=== PATIENT | female | born 1940 | race Two or more races ===

== ENCOUNTER 2016-12-10 16:29 | Inpatient (IN) | payer OTHER, MEDICAID ==
[~2016-12-10] VITALS: Ht 152.4 cm; Wt 65.8 kg
[~2016-12-10 16:29] MED LIST: ACTOS30 MG ORAL; ACTOS45 MG ORAL; AMLODIPINE BESY10 MG ORAL; ASPIRIN500 MG ORAL; ASPIRIN81 MG ORAL; CIPROFLOXACIN250 MG PO; CLOPIDOGREL75 MG ORAL; DIOVAN160 MG ORAL; DIOVAN80 MG ORAL; FUROSEMIDE20 M1 ORAL; GLIMEPIRIDE4 MG ORAL; GLIPIZIDE10 MG PO; HYDROCHLOROTH12.5 M2 ORAL; K-TAB10 MEQ PO; LASIX20 M1 ORAL; LASIX40 MG ORAL; LOVASTATIN20 MG ORAL; LOVASTATIN20 MG PO; METFORMIN HCL500 M1 ORAL; NORCO 5-325 TA1 EACH ORAL; OMEPRAZOLE20 M2 ORAL; PROPRANOLOL HCL10 MG ORAL; PROTONIX40 MG ORAL; TRAMADOL HCL50 MG ORAL; UNOBMED; VITAMIN D250000 UNI1 ORAL
--- NOTE | 2016-12-10 16:53 | Emergency Room Report ---
History of Present Illness General Chief Complaint: General Complaint Source: Patient, Medical Record Present Illness HPI Patient sent in for blood transfusion. She had blood drawn by her doctor yesterday. She's been treated for cirrhosis. She's not sure if red blood cells were low or her platelets. She was vomiting 2 days ago. She states it was phlegm. She denies any coffee grounds. She also denies any melena. She is moving her bowels without any trouble. She takes lactulose. She does feel weak. She takes medicine for high ammonia. She also has swelling of her legs which is not changed recently. She denies any chest pain or shortness of breath. There's no fever. She denies dysuria or decreased urine. She has had strokes in the past, HTN, DM. Allergies: Coded Allergies: PHENOBARBITAL (Unverified Allergy, Intermediate, 09/07/12) Patient History Past Medical History: see triage record Past Surgical History: other - L knee, back stabilization Social History: Denies: smoking Social History Narrative with family Reviewed Nursing Documentation: PMH: Agreed, PSxH: Agreed Nursing Documentation-PM Past Medical History: No History, Except For Hx Cardiac Problems: Yes - Anemia, L eye blindness Hx Hypertension: Yes Hx Diabetes: Yes Hx Cancer: No Hx Gastrointestinal Problems: No Hx Cerebrovascular Accident: Yes Hx Transient Ischemic Attacks: Yes Hx Dementia: Yes Hx Seizures: No Hx Headaches: Yes Hx Weakness: Yes - GENERALIZED WEAKNESS Review of Systems All Other Systems: negative except mentioned in HPI Physical Exam Vital Signs Date Time Temp Pulse Resp B/P (MAP) Pulse Ox O2 Delivery O2 Flow Rate FiO2 12/10/16 16:38 98.1 66 16 149/57 100 Room Air Sp02 EP Interpretation: reviewed, normal General Appearance: no apparent distress, alert, GCS 15, non-toxic, Chronically Ill Head: normocephalic Eyes: bilateral eye normal inspection, bilateral eye PERRL ENT: moist mucus membranes Neck: supple Respiratory: lungs clear, normal breath sounds Cardiovascular #1: regular rate, rhythm Cardiovascular #2: 2+ radial (R) Gastrointestinal: normal inspection, normal bowel sounds, non tender, no mass, non-distended, other - no fluid wave Rectal: heme negative stool - yellow Musculoskeletal: back normal, other - in wheel chair Neurologic: alert, oriented x3, DTRs symmetric, sensory intact, speech normal, motor weakness - L partial hemiparesis, other - No asterixis, L ptosis Psychiatric: depressed affect Skin: normal inspection, warm/dry Medical Decision Making Diagnostic Impression: Primary Impression: Hepatic encephalopathy Additional Impressions: Acute renal failure Qualified Codes: N17.9 - Acute kidney failure, unspecified Anemia Qualified Codes: D64.9 - Anemia, unspecified Thrombocytopenia UTI (urinary tract infection) Qualified Codes: N30.00 - Acute cystitis without hematuria Hyperkalemia ER Course Patient presents with a history that her blood counts low. She has evidence of total-body sodium excess on exam. She also complains that weakness. Differential includes acute myocardial infarction, GI bleed, no platelets, anemia, electrolyte abnormality, high ammonia amongst others. Her abdominal exam is benign at the moment. Evaluation will be with EKG, chest x-ray, abdominal films and labs. She has total-body sodium excess right now and therefore IV hydration is not indicated. Stool is negative. Labs with high potassium and renal failure (higher creat than prior admission). Initiation of treatment with albuterol, Kayexelate, calcium, insulin and D50W. Ammonia high. No asterixis, but patient c/o weakness. H/H and platelets low, but not indication for transfusions at this time. Patient improved with treatment. Admit tele, Dr. Yin (Dr. Garcia seasonal driver). UTI late finding and antibiotics ordered. Laboratory Tests Test 12/10/16 17:20 12/10/16 19:02 White Blood Count 4.2 K/UL (4.8-10.8) L Red Blood Count 2.69 M/UL (4.20-5.40) L Hemoglobin 9.2 G/DL (12.0-16.0) L Hematocrit 26.8 % (37.0-47.0) L Mean Corpuscular Volume 100 FL (80-99) H Mean Corpuscular Hemoglobin 34.2 PG (27.0-31.0) H Mean Corpuscular Hemoglobin Concent 34.3 G/DL (32.0-36.0) Red Cell Distribution Width 13.4 % (11.6-14.8) Platelet Count 87 K/UL (150-450) L Mean Platelet Volume 6.4 FL (6.5-10.1) L Neutrophils (%) (Auto) 43.5 % (45.0-75.0) L Lymphocytes (%) (Auto) 34.9 % (20.0-45.0) Monocytes (%) (Auto) 12.1 % (1.0-10.0) H Eosinophils (%) (Auto) 7.7 % (0.0-3.0) H Basophils (%) (Auto) 1.8 % (0.0-2.0) Prothrombin Time 10.6 SEC (9.30-11.50) Prothrombin Time INR 1.0 (0.9-1.1) PTT 27 SEC (23-33) Sodium Level 139 mEQ/L (135-145) Potassium Level 5.8 mEQ/L (3.4-4.9) H Chloride Level 108 mEQ/L (98-107) H Carbon Dioxide Level 16 mEQ/L (20-30) L Anion Gap 15 (5-15) Blood Urea Nitrogen 47 mg/dL (7-23) H Creatinine 1.7 mg/dL (0.5-0.9) H Estimate Glomerular Filtration Rate mL/min (>60) Glucose Level 190 mg/dL (74-106) H Lactic Acid Level 1.50 mmol/L (0.66-2.22) Calcium Level 9.3 mg/dL (8.6-10.2) Total Bilirubin 0.5 mg/dL (0.0-1.2) Aspartate Amino Transferase (AST) 35 U/L (5-40) Alanine Aminotransferase (ALT) 16 U/L (3-33) Alkaline Phosphatase 151 U/L (35-104) H Ammonia 169 umol/L (11-51) H Troponin I < 0.30 ng/mL (<=0.30) Total Protein 6.9 g/dL (6.6-8.7) Albumin 3.4 g/dL (3.5-5.2) L Globulin 3.5 g/dL Albumin/Globulin Ratio 0.9 (1.0-2.7) L Lipase 14 U/L (< 60) Urine Color Yellow Urine Appearance Slightly cloudy Urine pH 5 (4.5-8.0) Urine Specific [place] 1.010 (1.005-1.035) Urine Protein 2+ (NEGATIVE) H Urine Glucose (UA) Negative (NEGATIVE) Urine Ketones Negative (NEGATIVE) Urine Occult Blood 3+ (NEGATIVE) H Urine Nitrite Negative (NEGATIVE) Urine Bilirubin Negative (NEGATIVE) Urine Urobilinogen Normal MG/DL (0.0-1.0) Urine Leukocyte Esterase 2+ (NEGATIVE) H Urine RBC 2-4 /HPF (0 - 2) H Urine WBC 10-15 /HPF (0 - 2) H Urine Squamous Epithelial Cells Few /LPF (NONE/OCC) Urine Bacteria Many /HPF (NONE) H EKG Diagnostic Results Rate: normal Rhythm: NSR ST Segments: no acute changes - 1st degree AVB Rhythm Strip Diag. Results EP Interpretation: yes Rhythm: NSR, no PVC's, no ectopy Chest X-Ray Diagnostic Results Chest X-Ray Diagnostic Results : Chest X-Ray Ordered: Yes # of Views/Limited/Complete: 1 View Indication: Other EP Interpretation: Yes Interpretation: no consolidation, no effusion, no pneumothorax, no acute cardiopulmonary disease, other - spinal [place] Impression: No acute disease Interpreting ER Provider: signed Eliezer Carrasco MD Other X-Ray Diagnostic Results Other X-Ray Diagnostic Results : X-Ray ordered: abd # of Views/Limited Vs Complete: 1 View Indication: Other EP Interpretation: Yes Interpretation: nonspecific bowel gas, no sbo, other - no masses Impression: No acute disease Interpreting ER Provider: signed Eliezer Carrasco MD Last Vital Signs Date Time Temp Pulse Resp B/P (MAP) Pulse Ox O2 Delivery O2 Flow Rate FiO2 12/10/16 23:56 96.8 72 18 94/31 97 Room Air Status: improved Disposition: ADMITTED INPATIENT Condition: Serious Eliezer Carrasco M.D. Dec 10, 2016 16:53
[2016-12-10 16:55] VITALS: BP 129/81
[2016-12-10 17:43] LABS: MEAN CORPUSCULAR HEMOGLOBIN 34.2 PG (27.0-31.0); MEAN CORPUSCULAR HGB CONC 34.3 G/DL (32.0-36.0); MEAN CORPUSCULAR VOLUME 100 FL (80-99); MEAN PLATELET VOLUME 6.4 FL (6.5-10.1); PLATELET COUNT 87 K/UL (150-450); RED BLOOD COUNT 2.69 M/UL (4.20-5.40); RED CELL DISTRIBUTION WIDTH 13.4 % (11.6-14.8); WHITE BLOOD COUNT 4.2 K/UL (4.8-10.8)
[2016-12-10 17:44] LABS: BASOPHILS % (AUTO) 1.8 % (0.0-2.0); EOSINOPHILS % (AUTO) 7.7 % (0.0-3.0); LYMPHOCYTES % (AUTO) 34.9 % (20.0-45.0); MONOCYTES % (AUTO) 12.1 % (1.0-10.0); NEUTROPHILS % (AUTO) 43.5 % (45.0-75.0)
[2016-12-10] MEDS ORDERED: XIFAXAN550 MG ORAL (17:58)
[2016-12-10] MEDS ORDERED: MAPAP500 M2 PO (17:58)
[2016-12-10] MEDS ORDERED: LEVOCETIRIZINE D5 MG ORAL (17:58)
[2016-12-10] MEDS ORDERED: AMLODIPINE BESY10 MG ORAL (18:00)
[2016-12-10] MEDS ORDERED: FOLIC ACID1 MG ORAL (18:00)
[2016-12-10] MEDS ORDERED: KLOR-CON20 MEQ ORAL (18:00)
[2016-12-10] MEDS ORDERED: BENAZEPRIL HCL20 MG ORAL (18:00)
[2016-12-10] MEDS ORDERED: ACTOS30 MG ORAL (18:00)
[2016-12-10 18:01] LABS: PROTHROMBIN TIME 10.6 SEC (9.30-11.50)
[2016-12-10 18:17] LABS: TROPONIN I < 0.30 ng/mL (<=0.30)
[2016-12-10 18:31] LABS: AMMONIA 169 umol/L (11-51)
[2016-12-10 18:50] LABS: ALANINE AMINOTRANSFERASE 16 U/L (3-33); ALBUMIN/GLOBULIN RATIO 0.9 (1.0-2.7); ANION GAP 15 (5-15); ASPARTATE AMINO TRANSFERASE 35 U/L (5-40); CALCIUM 9.3 mg/dL (8.6-10.2); CARBON DIOXIDE 16 mEQ/L (20-30); CHLORIDE 108 mEQ/L (98-107); CREATININE 1.7 mg/dL (0.5-0.9); HEMOLYSIS 1; LIPASE 14 U/L (< 60); POTASSIUM 5.8 mEQ/L (3.4-4.9); SODIUM 139 mEQ/L (135-145); TOTAL PROTEIN 6.9 g/dL (6.6-8.7)
[2016-12-10 19:05] VITALS: BP 103/50
[2016-12-10 19:25] LABS: APPEARANCE,URINE SLIGHTLY CLOUDY; KETONES,URINE NEGATIVE (NEGATIVE); LEUKOCYTE ESTERASE ,URINE 2+ (NEGATIVE); NITRITE,URINE NEGATIVE (NEGATIVE); PH,URINE 5 (4.5-8.0); PROTEIN,URINE 2+ (NEGATIVE); UROBILINOGEN,URINE NORMAL MG/DL (0.0-1.0)
[2016-12-10] MEDS ORDERED: Albuterol ud Inhalation HHN ONE (19:30)
[2016-12-10] MEDS ORDERED: Sodium Polystyrene Sulfonate 15gm Powder ORAL ONE (19:30)
[2016-12-10] MEDS ORDERED: Calcium Gluconate 1gm/10ml vial IVP ONE (19:30)
[2016-12-10 19:33] LABS: BACTERIA,URINE MANY /HPF; SQUAMOUS EPITHELIAL CELL,UR FEW /LPF (NONE/OCC)
[2016-12-10] MEDS ORDERED: TYLENOL EXTRA500 MG ORAL ×2 (19:54→19:56)
[2016-12-10] MEDS ORDERED: KLOR-CON 88 MEQ ORAL (19:58)
[2016-12-10 20:00] VITALS: BP 126/110
[2016-12-10] MEDS ORDERED: LACTULOSE10 GM/153 PO (20:00)
[2016-12-10 21:23] VITALS: BP 145/37
[2016-12-10] MEDS ORDERED: Miralax 17gm pkt ORAL PRN (22:30)
[2016-12-10] MEDS: Lactulose 20gm/30ml UDC ORAL SCH (23:55)
[2016-12-10 23:56] VITALS: BP 94/31
[2016-12-11] MEDS ORDERED: cefTRIAXone 1 GM in D5W 55 ML IVPB ONE (00:45)
[2016-12-11 04:00] VITALS: BP 123/61
[2016-12-11] MEDS: NovoLOG Insulin Flexpen SUBQ SCH ×4 (06:30→20:54)
[2016-12-11 08:26] LABS: MEAN CORPUSCULAR HEMOGLOBIN 33.1 PG (27.0-31.0); MEAN CORPUSCULAR VOLUME 103 FL (80-99); MEAN PLATELET VOLUME 6.7 FL (6.5-10.1); PLATELET COUNT 96 K/UL (150-450); RED BLOOD COUNT 2.76 M/UL (4.20-5.40); RED CELL DISTRIBUTION WIDTH 13.5 % (11.6-14.8)
[2016-12-11 08:44] LABS: ALANINE AMINOTRANSFERASE 18 U/L (3-33); ANION GAP 14 (5-15); ASPARTATE AMINO TRANSFERASE 33 U/L (5-40); BILIRUBIN,DIRECT 0.1 mg/dL (0.1-0.3); CALCIUM 9.4 mg/dL (8.6-10.2); CARBON DIOXIDE 18 mEQ/L (20-30); CHLORIDE 111 mEQ/L (98-107); CREATININE 1.6 mg/dL (0.5-0.9); HEMOLYSIS 7; MAGNESIUM 2.4 mg/dL (1.7-2.5); PHOSPHORUS 4.9 mg/dL (2.5-4.8); POTASSIUM 4.9 mEQ/L (3.4-4.9); SODIUM 143 mEQ/L (135-145); TOTAL PROTEIN 6.6 g/dL (6.6-8.7)
[2016-12-11 08:45] VITALS: BP 150/61
[2016-12-11 08:48] LABS: FERRITIN 331 ng/mL (13-150)
[2016-12-11 08:49] LABS: HEMOLYSIS 12; IRON 61 ug/dL (37-145); TOTAL IRON BINDING CAPACITY 235 ug/dL (250-400)
[2016-12-11] MEDS ORDERED: Docusate 100mg cap ORAL SCH (09:00)
[2016-12-11 09:45] LABS: BAND NEUTROPHILS % (MANUAL) 3 % (0-8); BASOPHILS % (MANUAL) 0 % (0-2); EOSINOPHILS % (MANUAL) 1 % (0-3); LYMPHOCYTES % (MANUAL) 27 % (20-45); MYELOCYTES % 1 % (0-0); NEUTROPHILS % (MANUAL) 65 % (45-75); PLATELET ESTIMATE DECREASED; PLATELET MORPHOLOGY NORMAL; TOTAL CELLS COUNTED 100
[2016-12-11] MEDS: Lactulose 20gm/30ml UDC ORAL SCH ×3 (09:53→19:39)
--- NOTE | 2016-12-11 11:16 | Diagnostic Imaging Report ---
Indication: Dyspnea Comparison: 10/22/15 A single view chest radiograph was obtained. Findings: No definite infiltrate or pulmonary vascular congestion identified. The heart is enlarged. The bones are osteopenic. Impression: No acute disease
--- NOTE | 2016-12-11 11:17 | Diagnostic Imaging Report ---
Indication: Abdominal pain Comparison: None Single view of the abdomen obtained Findings: Bowel gas pattern is nonspecific. The bones are osteopenic. Lower lumbar laminectomy and fixation screws for fusion noted. Impression: No acute findings
[2016-12-11 11:54] VITALS: BP 145/59
--- NOTE | 2016-12-11 12:45 | Wound Care Consultation ---
Wound Assessment Wound Assessment : Wound Number: 1 Wound Present on Admission: Yes New Wound: No Status Change of Wound: No Wound Location Body Site Modif: mid Wound Location Body Site: sacral Wound Type: pressure ulcer Tim Test: Does not Tim Pressure Ulcer Stage: II Wound Thickness: Partial Thickness Wound Length: 1.0 Wound Width: 0.5 Wound Depth: less than 0.1 Percent of Wound [place]/Red: 100 Wound Drainage Description: Serosanguineous Wound Drainage Amount: Scant Wound Drainage Odor: None/Absent Tissue Surrounding Wound: Erythemic Wound General Appearance: Reddened Wound Comment #1 Sacral stage II pressure ulcer Recommendation -Sacral stage II pressure ulcer Cleanse with saline, pat dry, apply Triad cream, cover with Biatain silicone daily and PRN soiled/dislodged -Keep clean and dry -Turn and reposition -Optimize nutrition -Low air loss SPR mattress -Offload both heels -Heel protector on both heels while in bed -Assess and f/u accordingly for any changes MORGAN ROGERS RN Dec 11, 2016 12:45
--- NOTE | 2016-12-11 13:17 | History and Physical ---
History of Present Illness General Date patient seen: Dec 11, 2016 Time patient seen: 13:16 Reason for Hospitalization: Hyperkalemia, anemia, encephalopathy Present Illness HPI 76y/o female with pmh of hep C cirrhosis c/b hepatic encephalopathy, HTN, DM2, CVA and now non-ambulatory (per pt), CKD, aanemia of chronic disease who pressents with weakness and abnormal labs results. Per pt her PCP called her and told her to go to the ER for transfusion given low hgb--she does not know the number. She also c/o generalized weakness, some confusion. She is a poor historian. She denies f/c, n/v, d/c, chest pain, SOB, abd pain, dysuria. Denies melena, BRBPR. Pt states she has been non-ambulatory after multiple strokes. She gets around in a wheelchair. In ED, hgb 9, K 5.8. Pt given treatment for hyperkalemia including Kayexalate. Ammonia level elevated to 160s. Allergies: Coded Allergies: PHENOBARBITAL (Unverified Allergy, Intermediate, 09/07/12) Medication History Scheduled Amlodipine Besylate* (Amlodipine Besylate*), 10 MG ORAL DAILY, (Reported) Benazepril Hcl* (Benazepril Hcl*), 20 MG ORAL DAILY, (Reported) Folic Acid* (Folic Acid*), 1 MG ORAL DAILY, (Reported) Furosemide* (Lasix*), 20 MG ORAL TWICE A DAY, (Reported) Levocetirizine Dihydrochloride (Levocetirizine Dihydrochloride), 5 MG ORAL DAILY , (Reported) Lovastatin (Lovastatin), 20 MG ORAL BEDTIME, (Reported) Pioglitazone Hcl* (Actos*), 30 MG ORAL DAILY, (Reported) Potassium Chloride (Klor-Con 8), 8 MEQ ORAL DAILY, (Reported) Rifaximin* (Xifaxan*), 550 MG ORAL TWICE A DAY, (Reported) Scheduled PRN Acetaminophen* (Tylenol Extra Strength*), 500 MG ORAL Q8H PRN for For Pain, ( Reported) Miscellaneous Medications Lactulose (Lactulose), 10 GM PO, (Reported) Patient History History Provided By: Patient, Medical Record Healthcare decision maker Resuscitation status Full Code Advanced Directive on File No Past Medical/Surgical History Past Medical/Surgical History: (1) H/O: CVA (cerebrovascular accident) (2) HTN (hypertension) (3) Decompensated HCV cirrhosis (4) Hepatic encephalopathy (5) CKD (chronic kidney disease) (6) DM (diabetes mellitus) Family History Family History: Patient reports no known family medical history. Social History Social History: (1) Lives with family Review of Systems Eye: Reports: no symptoms ENT: Reports: no symptoms Respiratory: Reports: no symptoms Cardiovascular: Reports: no symptoms Gastrointestinal: Reports: no symptoms Genitourinary: Reports: no symptoms Musculoskeletal: Reports: no symptoms Skin: Reports: no symptoms Psychiatric: Reports: no symptoms Neurological: Reports: no symptoms Endocrine: Reports: no symptoms Hematologic/Lymphatic: Reports: no symptoms Physical Exam Physical Exam Narrative General: alert, cooperative, no distress, appears stated age Head: normocephalic, without obvious abnormality, atraumatic Eyes: conjunctivae/corneas clear. PERRL, EOM's intact Throat: lips, mucosa, and tongue normal. MMM Neck: supple, symmetrical, trachea midline, and no JVD Lungs: clear to auscultation bilaterally Heart: regular rate and rhythm, S1, S2 normal, no murmur, click, rub or gallop Abdomen: soft, non-tender, +mild distention, no sig fluid wave, bowel sounds normal; no masses or organomegaly Extremities: extremities normal, atraumatic, no cyanosis, trace BLE edema Pulses: 2+ and symmetric Skin: skin color, texture, turgor normal; no rashes or lesions Neurologic: grossly normal, no focal deficits Last 24 Hour Vital Signs Date Time Temp Pulse Resp B/P (MAP) Pulse Ox O2 Delivery O2 Flow Rate FiO2 12/11/16 11:54 97.0 89 20 145/59 97 Room Air 12/11/16 09:53 80 150/61 12/11/16 08:45 97.0 80 18 150/61 100 Room Air 12/11/16 08:00 85 12/11/16 04:00 73 12/11/16 04:00 97.6 68 17 123/61 99 Room Air 12/11/16 00:01 75 12/10/16 23:56 96.8 72 18 94/31 97 Room Air 12/10/16 22:45 97.9 86 24 145/37 99 Room Air 86 12/10/16 21:23 97.9 86 24 145/37 99 Room Air 86 12/10/16 20:00 97.9 77 20 126/110 100 Room Air 12/10/16 19:05 97.9 69 20 103/50 99 Room Air 12/10/16 16:55 98.1 71 14 129/81 100 Room Air 12/10/16 16:38 98.1 66 16 149/57 100 Room Air Intake and Output 12/11/16 12/12/16 19:00 07:00 Intake Total 120 ml Balance 120 ml Intake Oral 120 ml # Voids 1 # Bowel Movements 1 Laboratory Tests Test 12/10/16 17:20 12/10/16 19:02 12/11/16 07:20 White Blood Count 4.2 K/UL (4.8-10.8) L 6.0 K/UL (4.8-10.8) Red Blood Count 2.69 M/UL (4.20-5.40) L 2.76 M/UL (4.20-5.40) L Hemoglobin 9.2 G/DL (12.0-16.0) L 9.1 G/DL (12.0-16.0) L Hematocrit 26.8 % (37.0-47.0) L 28.6 % (37.0-47.0) L Mean Corpuscular Volume 100 FL (80-99) H 103 FL (80-99) H Mean Corpuscular Hemoglobin 34.2 PG (27.0-31.0) H 33.1 PG (27.0-31.0) H Mean Corpuscular Hemoglobin Concent 34.3 G/DL (32.0-36.0) 32.0 G/DL (32.0-36.0) Red Cell Distribution Width 13.4 % (11.6-14.8) 13.5 % (11.6-14.8) Platelet Count 87 K/UL (150-450) L 96 K/UL (150-450) L Mean Platelet Volume 6.4 FL (6.5-10.1) L 6.7 FL (6.5-10.1) Neutrophils (%) (Auto) 43.5 % (45.0-75.0) L % (45.0-75.0) Lymphocytes (%) (Auto) 34.9 % (20.0-45.0) % (20.0-45.0) Monocytes (%) (Auto) 12.1 % (1.0-10.0) H % (1.0-10.0) Eosinophils (%) (Auto) 7.7 % (0.0-3.0) H % (0.0-3.0) Basophils (%) (Auto) 1.8 % (0.0-2.0) % (0.0-2.0) Prothrombin Time 10.6 SEC (9.30-11.50) Prothromb Time International Ratio 1.0 (0.9-1.1) Activated Partial Thromboplast Time 27 SEC (23-33) Sodium Level 139 mEQ/L (135-145) 143 mEQ/L (135-145) Potassium Level 5.8 mEQ/L (3.4-4.9) H 4.9 mEQ/L (3.4-4.9) Chloride Level 108 mEQ/L (98-107) H 111 mEQ/L (98-107) H Carbon Dioxide Level 16 mEQ/L (20-30) L 18 mEQ/L (20-30) L Anion Gap 15 (5-15) 14 (5-15) Blood Urea Nitrogen 47 mg/dL (7-23) H 48 mg/dL (7-23) H Creatinine 1.7 mg/dL (0.5-0.9) H 1.6 mg/dL (0.5-0.9) H Estimat Glomerular Filtration Rate mL/min (>60) mL/min (>60) Glucose Level 190 mg/dL (74-106) H 133 mg/dL (74-106) H Lactic Acid Level 1.50 mmol/L (0.66-2.22) Calcium Level 9.3 mg/dL (8.6-10.2) 9.4 mg/dL (8.6-10.2) Total Bilirubin 0.5 mg/dL (0.0-1.2) 0.6 mg/dL (0.0-1.2) Aspartate Amino Transf (AST/SGOT) 35 U/L (5-40) 33 U/L (5-40) Alanine Aminotransferase (ALT/SGPT) 16 U/L (3-33) 18 U/L (3-33) Alkaline Phosphatase 151 U/L (35-104) H 123 U/L (35-104) H Ammonia 169 umol/L (11-51) H Troponin I < 0.30 ng/mL (<=0.30) Total Protein 6.9 g/dL (6.6-8.7) 6.6 g/dL (6.6-8.7) Albumin 3.4 g/dL (3.5-5.2) L 3.2 g/dL (3.5-5.2) L Globulin 3.5 g/dL Albumin/Globulin Ratio 0.9 (1.0-2.7) L Lipase 14 U/L (< 60) Urine Color Yellow Urine Appearance Slightly cloudy Urine pH 5 (4.5-8.0) Urine Specific [place] 1.010 (1.005-1.035) Urine Protein 2+ (NEGATIVE) H Urine Glucose (UA) Negative (NEGATIVE) Urine Ketones Negative (NEGATIVE) Urine Occult Blood 3+ (NEGATIVE) H Urine Nitrite Negative (NEGATIVE) Urine Bilirubin Negative (NEGATIVE) Urine Urobilinogen Normal MG/DL (0.0-1.0) Urine Leukocyte Esterase 2+ (NEGATIVE) H Urine RBC 2-4 /HPF (0 - 2) H Urine WBC 10-15 /HPF (0 - 2) H Urine Squamous Epithelial Cells Few /LPF (NONE/OCC) Urine Bacteria Many /HPF (NONE) H Differential Total Cells Counted 100 Neutrophils % (Manual) 65 % (45-75) Lymphocytes % (Manual) 27 % (20-45) Monocytes % (Manual) 3 % (1-10) Eosinophils % (Manual) 1 % (0-3) Basophils % (Manual) 0 % (0-2) Myelocytes % 1 % (0-0) H Band Neutrophils 3 % (0-8) Platelet Estimate Decreased L Platelet Morphology Normal Red Blood Cell Morphology Normal Phosphorus Level 4.9 mg/dL (2.5-4.8) H Magnesium Level 2.4 mg/dL (1.7-2.5) Iron Level 61 ug/dL (37-145) Total Iron Binding Capacity 235 ug/dL (250-400) L Percent Iron Saturation 26 % (15-50) Unsaturated Iron Binding 174 ug/dL (112-346) Ferritin 331 ng/mL (13-150) H Direct Bilirubin 0.1 mg/dL (0.1-0.3) Pro-B-Type Natriuretic Peptide 1134 pg/mL (0-125) H Microbiology Date/Time Source Procedure Growth Status 12/10/16 19:02 Urine,Clean Catch Urine Culture - Preliminary Resulted Height (Feet): 5 Height (Inches): 0.00 Weight (Pounds): 145 Medications Current Medications Medications (Trade) Dose Ordered Sig/Archie Route PRN Reason Start Time Stop Time Status Last Admin Dose Admin Amlodipine Besylate (Norvasc) 10 mg DAILY ORAL 12/11/16 09:00 01/10/17 08:59 12/11/16 09:53 Atorvastatin Calcium (Lipitor) 10 mg QHS ORAL 12/11/16 21:00 01/10/17 20:59 Bisacodyl (Dulcolax) 10 mg DAILYPRN PRN RECTAL Constipation 12/10/16 22:30 01/09/17 22:29 Dextrose (Dextrose 50%) STAT PRN IV Hypoglycemia 12/10/16 22:30 01/09/17 22:29 Dextrose (Dextrose 50%) STAT PRN IV Hypoglycemia 12/10/16 22:45 01/09/17 22:44 Docusate Sodium (Colace) 100 mg EVERY 12 HOURS ORAL 12/11/16 09:00 01/10/17 08:59 Folic Acid (Folate) 1 mg DAILY ORAL 12/11/16 09:00 01/10/17 08:59 12/11/16 09:00 Insulin Aspart (NovoLOG) BEFORE MEALS AND HS SUBQ 12/11/16 06:30 01/10/17 06:29 Lactulose (Cephulac) 20 gm THREE TIMES A DAY ORAL 12/10/16 22:45 01/09/17 22:44 12/11/16 09:53 Ondansetron HCl (Zofran) 4 mg Q6H PRN IVP Nausea & Vomiting 12/10/16 22:30 01/09/17 22:29 Pantoprazole (Protonix) 40 mg DAILY ORAL 12/11/16 09:00 01/10/17 08:59 12/11/16 09:53 Polyethylene Glycol (Miralax) 17 gm DAILYPRN PRN ORAL Constipation 12/10/16 22:30 01/09/17 22:29 Rifaximin (Xifaxan) 550 mg TWICE A DAY ORAL 12/10/16 22:45 12/17/16 22:44 12/11/16 09:00 Assessment/Plan Problem List: (1) Hyperkalemia ICD Codes: E87.5 - Hyperkalemia SNOMED: 50051993 (2) RACIEL on CKD (3) Acute on chronic hepatic encephalopathy (4) Decompensated HCV cirrhosis ICD Codes: B19.20 - Unspecified viral hepatitis C without hepatic coma; K74.69 - Other cirrhosis of liver SNOMED: 23276648, 84176831, 462610044, 809866166 (5) Anemia of chronic disease ICD Codes: D63.8 - Anemia in other chronic diseases classified elsewhere SNOMED: 184251048 (6) DM2 (diabetes mellitus, type 2) ICD Codes: E11.9 - Type 2 diabetes mellitus without complications SNOMED: 13241319 (7) HTN (hypertension) ICD Codes: I10 - Essential (primary) hypertension SNOMED: 66142825 (8) H/O: CVA (cerebrovascular accident) ICD Codes: Z86.73 - Personal history of transient ischemic attack (TIA), and cerebral infarction without residual deficits SNOMED: 301850496 Status: stable Assessment/Plan Admit inpt Renal consulted s/p treatment for hyperkalemia Monitor lytes and Cr closely Hold home ACEI and lasix for now given RACIEL GI consulted Plan for EGD tomorrow Cont lactulose (dose increased) + rifaximin Monitor mental status closely Outpt hepatology f/u for hep C treatment if not already done PT/OT eval Pain control, bowel regimen, supportive care DVT Prophylaxis: SCD Code Status: Full Hospital Classification Declaration: Based on this initial evaluation, and depending on the patient's clinical course, I anticipate that this patient will require hospitalization for 2-3 days for acute hepatic encephalopathy, hyperK and close respiratory/hemodynamic monitoring. Disposition: Once the patient is stable to leave the hospital, I anticipate the patient will likely be discharged to the following environment: home with HH vs SNF I spent 70 minutes on this patient's case, and 39 minutes were dedicated to counseling and/or care coordination. Discussed with patient/family, nursing staff, SW/CM, GI, renal regarding clinical status, treatment course, and disposition planning. D/w GI re plan for EGD Time of note may not reflect time of encounter. Jose Dennison M.D. Dec 11, 2016 13:17
--- NOTE | 2016-12-11 14:18 | Consultation ---
Consult Note Consult Note Chief Complaint: General Complaint Patient sent in for blood transfusion. She had blood drawn by her doctor yesterday. She's been treated for cirrhosis. She's not sure if red blood cells were low or her platelets. She was vomiting 2 days ago. She states it was phlegm. She denies any coffee grounds. She also denies any melena. She is moving her bowels without any trouble. She takes lactulose. She does feel weak. She takes medicine for high ammonia. She also has swelling of her legs which is not changed recently. She denies any chest pain or shortness of breath. There's no fever. She denies dysuria or decreased urine. She has had strokes in the past, HTN, DM. Allergies: PHENOBARBITAL (Unverified Allergy, Intermediate, 09/07/12) Past Medical History: Hx Cardiac Problems: Yes - Anemia, L eye blindness Hx Hypertension: Yes Hx Diabetes: Yes Hx Cerebrovascular Accident: Yes Hx Transient Ischemic Attacks: Yes Hx Dementia: Yes Hx Headaches: Yes Hx Weakness: Yes - GENERALIZED WEAKNESS . Assessment/Plan Renal failure / Mainly pre renal, with hyperKalemia Hepatic encephalopathy Anemia, Low Plats DM- HTN- CAD- s/p CVA- GERD- h/o Anemia- h/o UTIs Plan: Monitor renal parameters Meds reviewed- Avoid nephrotoxics anemia palacios Lactulose per orders CARMELLA KWOK Dec 11, 2016 14:18
[2016-12-11 15:54] VITALS: BP 125/57
[2016-12-11] MEDS: Docusate 100mg cap ORAL SCH (19:39)
[2016-12-11 20:00] VITALS: BP 145/61
[2016-12-12] VITALS (12 sets, daily range): BP systolic 130–159; BP diastolic 49–67
--- NOTE | 2016-12-12 01:15 | Consultation ---
DATE OF CONSULTATION: 12/11/2016 CHIEF COMPLAINT: Encephalopathy. HISTORY OF PRESENT ILLNESS: This is a very pleasant 76-year-old female with past medical history of hepatitis C and cirrhosis complicated with encephalopathy. Per patient, she is not getting any treatment for hepatitis C, but she has been followed apparently by liver doctor and been getting ultrasound every six months, admitted to hospital with anemia and altered mental status. On admission, ammonia level was 164. The patient denies any nausea or vomiting. Denies any dysphagia or odynophagia. Denies any melena or hematochezia. PAST MEDICAL HISTORY: 1. Hepatitis C. 2. Cirrhosis. 3. Thrombocytopenia. 4. Encephalopathy. 5. Multiple strokes in the past. 6. Hypertension. 7. Hypercholesterolemia. 8. Diabetes. PAST SURGICAL HISTORY: The patient had left knee surgery and back surgery. ALLERGIES: Phenobarbital. MEDICATIONS: Please see medication reconciliation list. SOCIAL HISTORY: The patient denies any tobacco, alcohol, or drug abuse. REVIEW OF SYSTEMS: A 10-point review of system was performed and pertinent positives in history of present illness. PHYSICAL EXAMINATION: VITAL SIGNS: Temperature 97 degrees, pulse 80, respirations 18, and blood pressure is 160/61. HEENT: Normocephalic and and atraumatic. The patient has left eye blindness. CARDIOVASCULAR: Regular rhythm. Plus S1 and S2. LUNGS: Clear to auscultation bilaterally. ABDOMEN: Positive bowel sounds. Soft and nontender. No rebound. No guarding. No peritoneal sign. EXTREMITIES: No cyanosis. No clubbing. No edema. LABORATORY DATA: White count 6, hemoglobin 9.1, hematocrit 28, and platelets of 96,000. ASSESSMENT: This is a 76-year-old female with altered mental status, elevated ammonia level, cirrhosis, and hepatic encephalopathy. PLAN: Continue lactulose and Xifaxan. Repeat ammonia level for tomorrow. Abdominal ultrasound, hepatitis panel. Plan for endoscopy tomorrow for evaluation of esophageal varices. The patient was informed of the procedure and risks and she agreed to it. Repeat labs for tomorrow. I want to thank, Dr. Yin, for this kind referral. Tesfaye Keyes M.D. DR: WANDA JOB#: [id number] CC: Ho Yin M.D.; Fax#: [phone]
[2016-12-12] MEDS: NovoLOG Insulin Flexpen SUBQ SCH ×4 (06:30→21:00)
[2016-12-12 07:32] LABS: MEAN CORPUSCULAR HEMOGLOBIN 33.3 PG (27.0-31.0); MEAN CORPUSCULAR HGB CONC 32.6 G/DL (32.0-36.0); MEAN CORPUSCULAR VOLUME 102 FL (80-99); MEAN PLATELET VOLUME 7.8 FL (6.5-10.1); PLATELET COUNT 81 K/UL (150-450); RED BLOOD COUNT 2.63 M/UL (4.20-5.40); WHITE BLOOD COUNT 3.5 K/UL (4.8-10.8)
[2016-12-12 07:41] LABS: PROTHROMBIN TIME 10.7 SEC (9.30-11.50)
[2016-12-12 07:53] LABS: AMMONIA 326 umol/L (11-51)
[2016-12-12 07:56] LABS: HEMOLYSIS 4; IRON 101 ug/dL (37-145); TOTAL IRON BINDING CAPACITY 226 ug/dL (250-400)
[2016-12-12 08:06] LABS: FERRITIN 334 ng/mL (13-150)
[2016-12-12 08:07] LABS: CRP QUANT < 0.3 mg/dL (< 0.5); HEMOGLOBIN A1C 5.3 % (< 6.0); MAGNESIUM 2.4 mg/dL (1.7-2.5); PHOSPHORUS 4.4 mg/dL (2.5-4.8); URIC ACID 6.9 mg/dL (3.0-7.5)
[2016-12-12 08:32] LABS: ALANINE AMINOTRANSFERASE 16 U/L (3-33); ANION GAP 14 (5-15); ASPARTATE AMINO TRANSFERASE 30 U/L (5-40); CARBON DIOXIDE 17 mEQ/L (20-30); CHLORIDE 110 mEQ/L (98-107); CREATININE 1.6 mg/dL (0.5-0.9); HEMOLYSIS 3; POTASSIUM 4.3 mEQ/L (3.4-4.9); SODIUM 141 mEQ/L (135-145)
[2016-12-12 08:34] LABS: EOSINOPHILS % (MANUAL) 8 % (0-3); LYMPHOCYTES % (MANUAL) 42 % (20-45); NEUTROPHILS % (MANUAL) 44 % (45-75); TOTAL CELLS COUNTED 100
[2016-12-12 08:35] LABS: BAND NEUTROPHILS % (MANUAL) 0 % (0-8); BASOPHILS % (MANUAL) 0 % (0-2); PLATELET ESTIMATE DECREASED; PLATELET MORPHOLOGY NORMAL
[2016-12-12] MEDS: Lactulose 20gm/30ml UDC ORAL SCH ×3 (08:35→17:47)
[2016-12-12] MEDS: Docusate 100mg cap ORAL SCH ×3 (08:36→17:44)
[2016-12-12] MEDS ORDERED: Lidocaine 1% MPF 10mg/ml 5ml ONE (10:00)
[2016-12-12] MEDS ORDERED: Midazolam 2mg/2ml Inj ONE (10:00)
[2016-12-12] MEDS ORDERED: Alfentanil 2ml Inj ONE (10:00)
[2016-12-12] MEDS ORDERED: LR 1000ml ONE (10:00)
[2016-12-12] MEDS ORDERED: Propofol 200mg/20ml IV ONE (10:00)
[2016-12-12] MEDS ORDERED: LR 1000ml 1,000 ML IVLG SCH (10:04)
--- NOTE | 2016-12-12 10:04 | Anethesia Preoperative Eval ---
Anesthesia Pre-op PMH/ROS General Date of Evaluation: Dec 12, 2016 Time of Evaluation: 09:47 Anesthesiologist: Sandra ASA Score: ASA 4 Mallampati Score Class I : Soft palate, uvula, fauces, pillars visible Class II: Soft palate, uvula, fauces visible Class III: Soft palate, base of uvula visible Class IV: Only hard plate visible Mallampati Classification: Class III Surgeon: Wali Diagnosis: Anemia Surgical Procedure: EGD Anesthesia History: none Family History: no anesthesia problems Allergies: Coded Allergies: PHENOBARBITAL (Unverified Allergy, Intermediate, 09/07/12) Medications: see eMAR Past Medical History Cardiovascular: Reports: HTN, CAD, other - HL Neurologic/Psychiatric: Reports: dementia Endocrine: Reports: DM Hematology/Immune: Reports: anemia, other - Hep C Other: obesity - BMI 30 PSxH Narrative: Back SX, L Knee SX Anesthesia Pre-op Phys. Exam Physician Exam Last Vital Signs Date Time Temp Pulse Resp B/P (MAP) Pulse Ox O2 Delivery O2 Flow Rate FiO2 12/12/16 08:42 78 130/49 12/12/16 08:00 97.5 20 95 Room Air Constitutional: NAD Neurologic: CN 2-12 intact Cardiovascular: RRR Respiratory: CTA Gastrointestinal: S/NT/ND Airway Exam Mallampati Score: Class III MO: limited ROM: limited Teeth: missing Anesthesia Pre-op A/P Labs Hematology Test 12/12/16 06:55 White Blood Count 3.5 K/UL (4.8-10.8) L Red Blood Count 2.63 M/UL (4.20-5.40) L Hemoglobin 8.7 G/DL (12.0-16.0) L Hematocrit 26.9 % (37.0-47.0) L Mean Corpuscular Volume 102 FL (80-99) H Mean Corpuscular Hemoglobin 33.3 PG (27.0-31.0) H Mean Corpuscular Hemoglobin Concent 32.6 G/DL (32.0-36.0) Red Cell Distribution Width 13.0 % (11.6-14.8) Platelet Count 81 K/UL (150-450) L Mean Platelet Volume 7.8 FL (6.5-10.1) Neutrophils (%) (Auto) % (45.0-75.0) Lymphocytes (%) (Auto) % (20.0-45.0) Monocytes (%) (Auto) % (1.0-10.0) Eosinophils (%) (Auto) % (0.0-3.0) Basophils (%) (Auto) % (0.0-2.0) Differential Total Cells Counted 100 Neutrophils % (Manual) 44 % (45-75) L Lymphocytes % (Manual) 42 % (20-45) Monocytes % (Manual) 6 % (1-10) Eosinophils % (Manual) 8 % (0-3) H Basophils % (Manual) 0 % (0-2) Band Neutrophils 0 % (0-8) Platelet Estimate Decreased L Platelet Morphology Normal Red Blood Cell Morphology Normal Coagulation Test 12/12/16 06:55 Prothrombin Time 10.7 SEC (9.30-11.50) Prothromb Time International Ratio 1.0 (0.9-1.1) Chemistry Test 12/12/16 06:55 Sodium Level 141 mEQ/L (135-145) Potassium Level 4.3 mEQ/L (3.4-4.9) Chloride Level 110 mEQ/L (98-107) H Carbon Dioxide Level 17 mEQ/L (20-30) L Anion Gap 14 (5-15) Blood Urea Nitrogen 42 mg/dL (7-23) H Creatinine 1.6 mg/dL (0.5-0.9) H Estimat Glomerular Filtration Rate mL/min (>60) Glucose Level 144 mg/dL (74-106) H Hemoglobin A1c 5.3 % (< 6.0) Uric Acid 6.9 mg/dL (3.0-7.5) Calcium Level 9.0 mg/dL (8.6-10.2) Phosphorus Level 4.4 mg/dL (2.5-4.8) Magnesium Level 2.4 mg/dL (1.7-2.5) Iron Level 101 ug/dL (37-145) Total Iron Binding Capacity 226 ug/dL (250-400) L Percent Iron Saturation 45 % (15-50) Unsaturated Iron Binding 125 ug/dL (112-346) Ferritin 334 ng/mL (13-150) H Total Bilirubin 0.5 mg/dL (0.0-1.2) Gamma Glutamyl Transpeptidase 35 U/L (5-36) Aspartate Amino Transf (AST/SGOT) 30 U/L (5-40) Alanine Aminotransferase (ALT/SGPT) 16 U/L (3-33) Alkaline Phosphatase 126 U/L (35-104) H Ammonia 326 umol/L (11-51) H Total Creatine Kinase 193 U/L (26-140) H C-Reactive Protein, Quantitative < 0.3 mg/dL (< 0.5) Pro-B-Type Natriuretic Peptide 1759 pg/mL (0-125) H Total Protein 6.0 g/dL (6.6-8.7) L Albumin 3.0 g/dL (3.5-5.2) L Globulin 3.0 g/dL Albumin/Globulin Ratio 1.0 (1.0-2.7) Alpha Fetoprotein Pending Vitamin B12 Level 1566 pg/mL (211-946) H Folate Pending Thyroid Stimulating Hormone (TSH) 5.140 uIU/mL (0.300-4.500) Risk Assessment & Plan Assessment: ASA 4 Plan: GA Status Change Before Surgery: No Kel Flores MD Dec 12, 2016 10:04
--- NOTE | 2016-12-12 10:06 | 48 Hour Post Anesthesia Eval ---
Post Anesthesia Evaluation Procedure: EGD Date of Evaluation: Dec 12, 2016 Time of Evaluation: 12:48 Blood Pressure Systolic: 141 0: 63 Pulse Rate: 72 Respiratory Rate: 18 Temperature (Fahrenheit): 98.4 O2 Sat by Pulse Oximetry: 99 Airway: patent Nausea: No Vomiting: No Pain Intensity: 1 Hydration Status: adequate Cardiopulmonary Status: Stable Mental Status/LOC: patient returned to baseline Follow-up Care/Observations: 0 Post-Anesthesia Complications: 0 Follow-up care needed: N/A Kel Flores MD Dec 12, 2016 10:06
--- NOTE | 2016-12-12 10:06 | Immediate Post-Op Evaluation ---
Immediate Post-Op Evalulation Immediate Post-Op Evalulation Procedure: EGD Date of Evaluation: Dec 12, 2016 Time of Evaluation: 10:38 IV Fluids: 200 LR Blood Products: 0 Estimated Blood Loss: 1 Urinary Output: 0 Blood Pressure Systolic: 137 Blood Pressure Diastolic: 62 Pulse Rate: 74 Respiratory Rate: 16 O2 Sat by Pulse Oximetry: 100 Temperature (Fahrenheit): 98.2 Pain Score (1-10): 1 Nausea: No Vomiting: No Complications 0 Patient Status: awake, reacts, patent, none Hydration Status: adequate Kel Flores MD Dec 12, 2016 10:06
--- NOTE | 2016-12-12 10:08 | Pre-Procedure Note/Attestation ---
Pre-Procedure Note/Attestation Complete Prior to Procedure Planned Procedure: not applicable Procedure Narrative: egd Indications for Procedure Pre-Operative Diagnosis: gib Attestation I attest that I discussed the nature of the procedure; its benefits; risks and complications; and alternatives (and the risks and benefits of such alternatives ), prior to the procedure, with the patient (or the patient's legal termite control service representative). I attest that, if there was a reasonable possibility of needing a blood transfusion, the patient (or the patient's legal termite control service representative) was given the [facility] standardized written summary, pursuant to the Wu Reynaldo Blood Safety Act ([place] Health and Safety Code # 1645, as amended). I attest that I re-evaluated the patient just prior to the surgery and that there has been no change in the patient's H&P, except as documented below: YORDAN VUONG Dec 12, 2016 10:08
[2016-12-12] MEDS ORDERED: Ketorolac 60mg Inj IV PRN (10:15)
[2016-12-12] MEDS ORDERED: Ketorolac 30mg Inj IV PRN (10:15)
[2016-12-12] MEDS ORDERED: Midazolam 2mg/2ml Inj IVP PRN (10:15)
[2016-12-12] MEDS ORDERED: DiphenhydrAMINE 50mg/ml Inj IVP PRN (10:15)
[2016-12-12] MEDS ORDERED: Meperidine 25mg/0.5ml Inj (FOR RIGORS ONLY) IV PRN (10:15)
[2016-12-12] MEDS ORDERED: oxyCODONE HCL/Acetaminophen 5/325mg ORAL PRN (10:15)
[2016-12-12] MEDS ORDERED: Metoclopramide 10mg/2ml Inj IVP PRN (10:15)
[2016-12-12] MEDS ORDERED: LORazepam Inj 2mg/ml 1ml IV PRN (10:15)
[2016-12-12] MEDS ORDERED: Norco 7.5mg/325mg tab ORAL PRN (10:15)
[2016-12-12] MEDS ORDERED: Norco 5mg/325mg tab ORAL PRN (10:15)
[2016-12-12] MEDS ORDERED: Atropine Inj 1mg/10ml Syr IV PRN (10:15)
[2016-12-12] MEDS ORDERED: fentaNYL 100 mcg/2 mL IV PRN (10:15)
[2016-12-12] MEDS ORDERED: Hydromorphone 0.5mg/0.5ml inj IVP PRN (10:15)
--- NOTE | 2016-12-12 10:16 | Endoscopy Procedure Note ---
Endoscopy Procedure Note Indication for Procedure: cirrhosis Procedures Performed: EGD Operative Findings/Diagnosis: gastritis Specimen: yes Pt Tolerated Procedure Well: Yes Estimated Blood Loss: none Anesthesiologist: sae Anesthesia: MAC Implant(s) used?: No 50 yrs or older w/o bx or poly: Not Applicable 10yrs. F/U not recommended: Not Applicable YORDAN VUONG Dec 12, 2016 10:16
--- NOTE | 2016-12-12 11:49 | Diagnostic Imaging Report ---
Indication:Abdominal pain. Elevated alkaline phosphatase. Technique: Grayscale and duplex Doppler imaging of the abdomen performed. Comparison: None Findings: There is nodularity of the liver surface. The liver shows a coarsened echotexture. The findings are consistent with cirrhosis/chronic liver disease. The demonstrated part of the pancreas is unremarkable in appearance. The aorta appears normal caliber but only partially seen. Main portal vein patent by Doppler. Central right renal cyst poorly imaged measuring about one CM. CBD is 5 mm in diameter. Spleen is normal in size. Increased color-flow vascularity noted in the splenic hilum. Possibility of varices not excluded. Impression: Chronic liver disease/cirrhosis. Possible varices in the area of the splenic hilum. No ascites Poorly imaged small right renal cyst
--- NOTE | 2016-12-12 12:57 | General Progress Note ---
Assessment/Plan Problem List: (1) Hyperkalemia ICD Codes: E87.5 - Hyperkalemia SNOMED: 34140545 (2) RACIEL on CKD (3) Acute on chronic hepatic encephalopathy (4) Decompensated HCV cirrhosis ICD Codes: B19.20 - Unspecified viral hepatitis C without hepatic coma; K74.69 - Other cirrhosis of liver SNOMED: 74088041, 15186136, 232500129, 629593238 (5) Anemia of chronic disease ICD Codes: D63.8 - Anemia in other chronic diseases classified elsewhere SNOMED: 776996360 (6) DM2 (diabetes mellitus, type 2) ICD Codes: E11.9 - Type 2 diabetes mellitus without complications SNOMED: 77892717 (7) HTN (hypertension) ICD Codes: I10 - Essential (primary) hypertension SNOMED: 25972992 (8) H/O: CVA (cerebrovascular accident) ICD Codes: Z86.73 - Personal history of transient ischemic attack (TIA), and cerebral infarction without residual deficits SNOMED: 826484299 Status: stable Assessment/Plan Renal consulted s/p treatment for hyperkalemia Monitor lytes and Cr closely Hold home ACEI and lasix for now given RACIEL GI consulted s/p EGD 12/12/16 which showed gastritis Cont lactulose (dose increased) + rifaximin Monitor mental status closely Outpt hepatology f/u for hep C treatment if not already done PT/OT eval Pain control, bowel regimen, supportive care DVT Prophylaxis: SCD Code Status: Full Hospital Classification Declaration: Based on this initial evaluation, and depending on the patient's clinical course, I anticipate that this patient will require hospitalization for 2-3 days for acute hepatic encephalopathy, hyperK and close respiratory/hemodynamic monitoring. Disposition: Once the patient is stable to leave the hospital, I anticipate the patient will likely be discharged to the following environment: home with HH vs SNF I spent 40 minutes on this patient's case, and 23 minutes were dedicated to counseling and/or care coordination. Discussed with patient/family, nursing staff, SW/CM, GI, renal regarding clinical status, treatment course, and disposition planning. D/w GI re EGD results Time of note may not reflect time of encounter. Subjective Date patient seen: Dec 12, 2016 Time patient seen: 12:57 Constitutional: Reports: no symptoms HEENT: Reports: no symptoms Cardiovascular: Reports: no symptoms Respiratory: Reports: no symptoms Gastrointestinal/Abdominal: Reports: no symptoms Genitourinary: Reports: no symptoms Neurologic/Psychiatric: Reports: no symptoms Endocrine: Reports: no symptoms Hematologic/Lymphatic: Reports: no symptoms Allergies: Coded Allergies: PHENOBARBITAL (Unverified Allergy, Intermediate, 09/07/12) Subjective No acute o/n events SCr downtrending Hgb fairly stable No e/o bleeding s/p EGD today which showed gastritis Pt doing well. Denies f/c, n/v, d/c, chest pain, SOB Objective Last 24 Hour Vital Signs Date Time Temp Pulse Resp B/P (MAP) Pulse Ox O2 Delivery O2 Flow Rate FiO2 12/12/16 12:00 97.4 73 19 134/67 99 Room Air 12/12/16 11:00 70 16 137/58 99 Room Air 12/12/16 10:55 98.2 68 15 140/63 99 Room Air 12/12/16 10:45 73 17 159/67 100 Room Air 12/12/16 10:35 78 17 145/64 100 Simple Mask 6.0 12/12/16 10:30 75 15 134/61 100 Simple Mask 6.0 12/12/16 10:30 72 18 99 12/12/16 10:27 98.8 74 14 137/62 100 Simple Mask 6.0 12/12/16 08:42 78 130/49 12/12/16 08:00 97.5 78 20 130/49 95 Room Air 12/12/16 08:00 76 12/12/16 04:00 72 12/12/16 04:00 97.0 103 26 130/67 91 Room Air 12/12/16 00:00 97.0 81 21 133/57 99 Room Air 12/12/16 00:00 72 12/11/16 20:00 85 12/11/16 20:00 96.9 83 22 145/61 99 Room Air 12/11/16 16:00 84 12/11/16 15:54 97.2 76 18 125/57 97 Room Air Intake and Output 12/12/16 12/13/16 19:00 07:00 Intake Total 250 ml Output Total 0 ml Balance 250 ml IV Total 250 ml Output Estimated Blood Loss 0 ml Laboratory Tests 12/11/16 15:40: Urine Random Sodium 20, Urine Opiates Screen Negative, Urine Barbiturates Screen Negative, Phencyclidine (PCP) Screen Negative, Urine Amphetamines Screen Negative, Urine Benzodiazepines Screen Negative, Urine Cocaine Screen Negative, Urine Marijuana (THC) Screen Negative 12/11/16 20:15: Stool Occult Blood Positive 12/12/16 06:55: White Blood Count 3.5L, Red Blood Count 2.63L, Hemoglobin 8.7L, Hematocrit 26.9L , Mean Corpuscular Volume 102H, Mean Corpuscular Hemoglobin 33.3H, Mean Corpuscular Hemoglobin Concent 32.6, Red Cell Distribution Width 13.0, Platelet Count 81L, Mean Platelet Volume 7.8, Neutrophils (%) (Auto) , Lymphocytes (%) ( Auto) , Monocytes (%) (Auto) , Eosinophils (%) (Auto) , Basophils (%) (Auto) , Differential Total Cells Counted 100, Neutrophils % (Manual) 44L, Lymphocytes % (Manual) 42, Monocytes % (Manual) 6, Eosinophils % (Manual) 8H, Basophils % ( Manual) 0, Band Neutrophils 0, Platelet Estimate DecreasedL, Platelet Morphology Normal, Red Blood Cell Morphology Normal, Prothrombin Time 10.7, Prothromb Time International Ratio 1.0, Sodium Level 141, Potassium Level 4.3, Chloride Level 110H, Carbon Dioxide Level 17L, Anion Gap 14, Blood Urea Nitrogen 42H, Creatinine 1.6H, Estimat Glomerular Filtration Rate , Glucose Level 144H, Hemoglobin A1c 5.3, Uric Acid 6.9, Calcium Level 9.0, Phosphorus Level 4.4, Magnesium Level 2.4, Iron Level 101, Total Iron Binding Capacity 226L , Percent Iron Saturation 45, Unsaturated Iron Binding 125, Ferritin 334H, Total Bilirubin 0.5, Gamma Glutamyl Transpeptidase 35, Aspartate Amino Transf ( AST/SGOT) 30, Alanine Aminotransferase (ALT/SGPT) 16, Alkaline Phosphatase 126H , Ammonia 326H, Total Creatine Kinase 193H, C-Reactive Protein, Quantitative < 0.3, Pro-B-Type Natriuretic Peptide 1759H, Total Protein 6.0L, Albumin 3.0L, Globulin 3.0, Albumin/Globulin Ratio 1.0, Alpha Fetoprotein [Pending], Vitamin B12 Level 1566H, Folate [Pending], Thyroid Stimulating Hormone (TSH) 5.140H, Hepatitis A IgM Antibody [Pending], Hepatitis B Surface Antigen [Pending], Hepatitis B Core IgM Antibody [Pending], Hepatitis C Antibody [Pending] Height (Feet): 5 Height (Inches): 0.00 Weight (Pounds): 145 Objective General: alert, cooperative, no distress, appears stated age Head: normocephalic, without obvious abnormality, atraumatic Eyes: conjunctivae/corneas clear. PERRL, EOM's intact Throat: lips, mucosa, and tongue normal. MMM Neck: supple, symmetrical, trachea midline, and no JVD Lungs: clear to auscultation bilaterally Heart: regular rate and rhythm, S1, S2 normal, no murmur, click, rub or gallop Abdomen: soft, non-tender, bowel sounds normal +mid distention w/o sig fluid wave Extremities: extremities normal, atraumatic, no cyanosis or edema Pulses: 2+ and symmetric Skin: skin color, texture, turgor normal; no rashes or lesions Neurologic: grossly normal, no focal deficits Jose Dennison M.D. Dec 12, 2016 12:57
--- NOTE | 2016-12-12 15:02 | General Progress Note ---
Assessment/Plan Status: stable - serum Cr Status Narrative high K resolved Assessment/Plan Renal failure / HyperKalemia resolved Hepatic encephalopathy, high Amonia Anemia, Low Plats DM- HTN- CAD- s/p CVA- GERD- h/o UTIs Plan: Monitor renal parameters Meds reviewed- Avoid nephrotoxics anemia palacios increase Lactulose per orders Subjective ROS Limited/Unobtainable: No Constitutional: Reports: malaise Allergies: Coded Allergies: PHENOBARBITAL (Unverified Allergy, Intermediate, 09/07/12) Objective Last 24 Hour Vital Signs Date Time Temp Pulse Resp B/P (MAP) Pulse Ox O2 Delivery O2 Flow Rate FiO2 12/12/16 12:00 97.4 73 19 134/67 99 Room Air 12/12/16 12:00 69 12/12/16 11:00 70 16 137/58 99 Room Air 12/12/16 10:55 98.2 68 15 140/63 99 Room Air 12/12/16 10:45 73 17 159/67 100 Room Air 12/12/16 10:35 78 17 145/64 100 Simple Mask 6.0 12/12/16 10:30 75 15 134/61 100 Simple Mask 6.0 12/12/16 10:30 72 18 99 12/12/16 10:27 98.8 74 14 137/62 100 Simple Mask 6.0 12/12/16 08:42 78 130/49 12/12/16 08:00 97.5 78 20 130/49 95 Room Air 12/12/16 08:00 76 12/12/16 04:00 72 12/12/16 04:00 97.0 103 26 130/67 91 Room Air 12/12/16 00:00 97.0 81 21 133/57 99 Room Air 12/12/16 00:00 72 12/11/16 20:00 85 12/11/16 20:00 96.9 83 22 145/61 99 Room Air 12/11/16 16:00 84 12/11/16 15:54 97.2 76 18 125/57 97 Room Air Intake and Output 12/12/16 12/13/16 19:00 07:00 Intake Total 250 ml Output Total 0 ml Balance 250 ml IV Total 250 ml Output Estimated Blood Loss 0 ml Laboratory Tests 12/11/16 15:40: Urine Random Sodium 20, Urine Opiates Screen Negative, Urine Barbiturates Screen Negative, Phencyclidine (PCP) Screen Negative, Urine Amphetamines Screen Negative, Urine Benzodiazepines Screen Negative, Urine Cocaine Screen Negative, Urine Marijuana (THC) Screen Negative 12/11/16 20:15: Stool Occult Blood Positive 12/12/16 06:55: White Blood Count 3.5L, Red Blood Count 2.63L, Hemoglobin 8.7L, Hematocrit 26.9L , Mean Corpuscular Volume 102H, Mean Corpuscular Hemoglobin 33.3H, Mean Corpuscular Hemoglobin Concent 32.6, Red Cell Distribution Width 13.0, Platelet Count 81L, Mean Platelet Volume 7.8, Neutrophils (%) (Auto) , Lymphocytes (%) ( Auto) , Monocytes (%) (Auto) , Eosinophils (%) (Auto) , Basophils (%) (Auto) , Differential Total Cells Counted 100, Neutrophils % (Manual) 44L, Lymphocytes % (Manual) 42, Monocytes % (Manual) 6, Eosinophils % (Manual) 8H, Basophils % ( Manual) 0, Band Neutrophils 0, Platelet Estimate DecreasedL, Platelet Morphology Normal, Red Blood Cell Morphology Normal, Prothrombin Time 10.7, Prothromb Time International Ratio 1.0, Sodium Level 141, Potassium Level 4.3, Chloride Level 110H, Carbon Dioxide Level 17L, Anion Gap 14, Blood Urea Nitrogen 42H, Creatinine 1.6H, Estimat Glomerular Filtration Rate , Glucose Level 144H, Hemoglobin A1c 5.3, Uric Acid 6.9, Calcium Level 9.0, Phosphorus Level 4.4, Magnesium Level 2.4, Iron Level 101, Total Iron Binding Capacity 226L , Percent Iron Saturation 45, Unsaturated Iron Binding 125, Ferritin 334H, Total Bilirubin 0.5, Gamma Glutamyl Transpeptidase 35, Aspartate Amino Transf ( AST/SGOT) 30, Alanine Aminotransferase (ALT/SGPT) 16, Alkaline Phosphatase 126H , Ammonia 326H, Total Creatine Kinase 193H, C-Reactive Protein, Quantitative < 0.3, Pro-B-Type Natriuretic Peptide 1759H, Total Protein 6.0L, Albumin 3.0L, Globulin 3.0, Albumin/Globulin Ratio 1.0, Alpha Fetoprotein [Pending], Vitamin B12 Level 1566H, Folate [Pending], Thyroid Stimulating Hormone (TSH) 5.140H, Free Thyroxine 1.19, Hepatitis A IgM Antibody [Pending], Hepatitis B Surface Antigen [Pending], Hepatitis B Core IgM Antibody [Pending], Hepatitis C Antibody [Pending] Height (Feet): 5 Height (Inches): 0.00 Weight (Pounds): 145 General Appearance: no apparent distress Objective PE not changed CARMELLA KWOK Dec 12, 2016 15:02
--- NOTE | 2016-12-12 21:45 | Procedure Note ---
DATE OF PROCEDURE: 12/12/2016 SURGEON: Tesfaye Keyes M.D. PROCEDURE: Upper endoscopy with biopsy. ANESTHESIOLOGIST: Kel Flores M.D. INSTRUMENT: Olympus adult flexible upper endoscope. INDICATION: Cirrhosis, evaluation for esophageal varices. REASON FOR PROCEDURE: The procedure, risks, benefits, and possible consequences, including hemorrhage, aspiration, perforation and infection, and alternative treatments, were explained to the patient/legal guardian by Dr. Tesfaye Keyes and the patient/legal guardian understood and accepted these risks. PROCEDURE: After informed consent was obtained and the patient was adequately sedated, Olympus upper endoscope was advanced from mouth into the second portion of the duodenum and retroflexion was performed in the stomach. The patient had evidence of some mild atrophic gastritis. No obvious esophageal or gastric varices. The patient had a small hiatal hernia. In the duodenum, the duodenal mucosa was grossly within normal limits. Random biopsy from antrum was obtained to rule out H. pylori infection. At this time, the upper endoscope was retrieved and the procedure was terminated. SUMMARY FINDINGS: 1. Small hiatal hernia. 2. No esophageal and no gastric varices. 3. Mild atrophic gastritis, status post biopsy. RECOMMENDATIONS: Followup biopsy results and treat accordingly. Tesfaye Keyes M.D. DR: JAYLENE JOB#: [id number] CC:
[2016-12-13 00:03] VITALS: BP 130/53
[2016-12-13 04:04] VITALS: BP 146/64
[2016-12-13] MEDS: NovoLOG Insulin Flexpen SUBQ SCH ×3 (06:30→16:30)
[2016-12-13 08:00] VITALS: BP 149/61
[2016-12-13 08:38] LABS: MEAN CORPUSCULAR HEMOGLOBIN 32.6 PG (27.0-31.0); MEAN CORPUSCULAR HGB CONC 31.7 G/DL (32.0-36.0); MEAN CORPUSCULAR VOLUME 103 FL (80-99); MEAN PLATELET VOLUME 8.5 FL (6.5-10.1); PLATELET COUNT 87 K/UL (150-450); RED BLOOD COUNT 2.63 M/UL (4.20-5.40); RED CELL DISTRIBUTION WIDTH 13.6 % (11.6-14.8); WHITE BLOOD COUNT 4.2 K/UL (4.8-10.8)
[2016-12-13 08:39] LABS: ANION GAP 12 (5-15); CARBON DIOXIDE 18 mEQ/L (20-30); CHLORIDE 110 mEQ/L (98-107); CREATININE 1.5 mg/dL (0.5-0.9); HEMOLYSIS 21; MAGNESIUM 2.2 mg/dL (1.7-2.5); PHOSPHORUS 3.7 mg/dL (2.5-4.8); POTASSIUM 4.3 mEQ/L (3.4-4.9); SODIUM 140 mEQ/L (135-145)
[2016-12-13 08:58] LABS: BAND NEUTROPHILS % (MANUAL) 0 % (0-8); BASOPHILS % (MANUAL) 0 % (0-2); EOSINOPHILS % (MANUAL) 5 % (0-3); HYPOCHROMASIA 1+; LYMPHOCYTES % (MANUAL) 35 % (20-45); MACROCYTES 1+; NEUTROPHILS % (MANUAL) 55 % (45-75); PLATELET ESTIMATE DECREASED; PLATELET MORPHOLOGY NORMAL; TOTAL CELLS COUNTED 100
--- NOTE | 2016-12-13 09:12 | General Progress Note ---
Assessment/Plan Status: stable Status Narrative Cr 1.5 Assessment/Plan Renal failure / HyperKalemia resolved Hepatic encephalopathy, high Amonia Anemia, Low Plats DM- HTN- CAD- s/p CVA- GERD- h/o UTIs Plan: Monitor renal parameters Meds reviewed- Avoid nephrotoxics anemia palacios On Lactulose per orders Subjective ROS Limited/Unobtainable: No Constitutional: Reports: malaise Allergies: Coded Allergies: PHENOBARBITAL (Unverified Allergy, Intermediate, 09/07/12) Objective Last 24 Hour Vital Signs Date Time Temp Pulse Resp B/P (MAP) Pulse Ox O2 Delivery O2 Flow Rate FiO2 12/13/16 08:00 97.9 82 20 149/61 97 Room Air 12/13/16 04:04 97.2 74 18 146/64 100 Room Air 12/13/16 04:00 80 12/13/16 00:03 97.3 75 18 130/53 99 Room Air 12/13/16 00:00 71 12/12/16 20:15 97.7 79 22 135/62 94 Room Air 12/12/16 20:00 79 12/12/16 16:00 97.9 74 22 131/55 97 Room Air 12/12/16 16:00 79 12/12/16 12:00 97.4 73 19 134/67 99 Room Air 12/12/16 12:00 69 12/12/16 11:00 70 16 137/58 99 Room Air 12/12/16 10:55 98.2 68 15 140/63 99 Room Air 12/12/16 10:45 73 17 159/67 100 Room Air 12/12/16 10:35 78 17 145/64 100 Simple Mask 6.0 12/12/16 10:30 75 15 134/61 100 Simple Mask 6.0 12/12/16 10:30 72 18 99 12/12/16 10:27 98.8 74 14 137/62 100 Simple Mask 6.0 Intake and Output 12/13/16 12/14/16 19:00 07:00 Intake Total 120 ml Balance 120 ml Intake Oral 120 ml Laboratory Tests 12/13/16 07:20: White Blood Count 4.2L, Red Blood Count 2.63L, Hemoglobin 8.6L, Hematocrit 27.0L , Mean Corpuscular Volume 103H, Mean Corpuscular Hemoglobin 32.6H, Mean Corpuscular Hemoglobin Concent 31.7L, Red Cell Distribution Width 13.6, Platelet Count 87L, Mean Platelet Volume 8.5, Neutrophils (%) (Auto) , Lymphocytes (%) (Auto) , Monocytes (%) (Auto) , Eosinophils (%) (Auto) , Basophils (%) (Auto) , Differential Total Cells Counted 100, Neutrophils % ( Manual) 55, Lymphocytes % (Manual) 35, Monocytes % (Manual) 5, Eosinophils % ( Manual) 5H, Basophils % (Manual) 0, Band Neutrophils 0, Platelet Estimate DecreasedL, Platelet Morphology Normal, Hypochromasia 1+, Macrocytosis 1+, Sodium Level 140, Potassium Level 4.3, Chloride Level 110H, Carbon Dioxide Level 18L, Anion Gap 12, Blood Urea Nitrogen 32H, Creatinine 1.5H, Estimat Glomerular Filtration Rate , Glucose Level 155H, Calcium Level 9.0, Phosphorus Level 3.7, Magnesium Level 2.2 Height (Feet): 5 Height (Inches): 0.00 Weight (Pounds): 145 General Appearance: no apparent distress Objective PE not changed CARMELLA KWOK Dec 13, 2016 09:12
--- NOTE | 2016-12-13 09:21 | General Progress Note ---
Assessment/Plan Problem List: (1) Cirrhosis ICD Codes: K74.60 - Unspecified cirrhosis of liver SNOMED: 72016492 (2) Gastritis ICD Codes: K29.70 - Gastritis, unspecified, without bleeding SNOMED: 4103360 (3) DM2 (diabetes mellitus, type 2) ICD Codes: E11.9 - Type 2 diabetes mellitus without complications SNOMED: 25677364 (4) HTN (hypertension) ICD Codes: I10 - Essential (primary) hypertension SNOMED: 91546354 (5) Anemia of chronic disease ICD Codes: D63.8 - Anemia in other chronic diseases classified elsewhere SNOMED: 916070856 (6) Hepatic encephalopathy ICD Codes: K72.90 - Hepatic failure, unspecified without coma SNOMED: 05368853 (7) Thrombocytopenia ICD Codes: D69.6 - Thrombocytopenia, unspecified SNOMED: 711615146 Assessment/Plan cont lactulose and xifaxan monitor labs tolerated diet Subjective ROS Limited/Unobtainable: Yes Allergies: Coded Allergies: PHENOBARBITAL (Unverified Allergy, Intermediate, 09/07/12) Subjective 4 bm Objective Last 24 Hour Vital Signs Date Time Temp Pulse Resp B/P (MAP) Pulse Ox O2 Delivery O2 Flow Rate FiO2 12/13/16 08:00 97.9 82 20 149/61 97 Room Air 12/13/16 04:04 97.2 74 18 146/64 100 Room Air 12/13/16 04:00 80 12/13/16 00:03 97.3 75 18 130/53 99 Room Air 12/13/16 00:00 71 12/12/16 20:15 97.7 79 22 135/62 94 Room Air 12/12/16 20:00 79 12/12/16 16:00 97.9 74 22 131/55 97 Room Air 12/12/16 16:00 79 12/12/16 12:00 97.4 73 19 134/67 99 Room Air 12/12/16 12:00 69 12/12/16 11:00 70 16 137/58 99 Room Air 12/12/16 10:55 98.2 68 15 140/63 99 Room Air 12/12/16 10:45 73 17 159/67 100 Room Air 12/12/16 10:35 78 17 145/64 100 Simple Mask 6.0 12/12/16 10:30 75 15 134/61 100 Simple Mask 6.0 12/12/16 10:30 72 18 99 12/12/16 10:27 98.8 74 14 137/62 100 Simple Mask 6.0 Intake and Output 12/13/16 12/14/16 19:00 07:00 Intake Total 120 ml Balance 120 ml Intake Oral 120 ml Laboratory Tests 12/13/16 07:20: White Blood Count 4.2L, Red Blood Count 2.63L, Hemoglobin 8.6L, Hematocrit 27.0L , Mean Corpuscular Volume 103H, Mean Corpuscular Hemoglobin 32.6H, Mean Corpuscular Hemoglobin Concent 31.7L, Red Cell Distribution Width 13.6, Platelet Count 87L, Mean Platelet Volume 8.5, Neutrophils (%) (Auto) , Lymphocytes (%) (Auto) , Monocytes (%) (Auto) , Eosinophils (%) (Auto) , Basophils (%) (Auto) , Differential Total Cells Counted 100, Neutrophils % ( Manual) 55, Lymphocytes % (Manual) 35, Monocytes % (Manual) 5, Eosinophils % ( Manual) 5H, Basophils % (Manual) 0, Band Neutrophils 0, Platelet Estimate DecreasedL, Platelet Morphology Normal, Hypochromasia 1+, Macrocytosis 1+, Sodium Level 140, Potassium Level 4.3, Chloride Level 110H, Carbon Dioxide Level 18L, Anion Gap 12, Blood Urea Nitrogen 32H, Creatinine 1.5H, Estimat Glomerular Filtration Rate , Glucose Level 155H, Calcium Level 9.0, Phosphorus Level 3.7, Magnesium Level 2.2 Height (Feet): 5 Height (Inches): 0.00 Weight (Pounds): 145 General Appearance: alert EENT: normal ENT inspection Neck: supple Cardiovascular: normal rate Respiratory/Chest: lungs clear Abdomen: normal bowel sounds, non tender, soft Extremities: non-tender YORDAN VUONG Dec 13, 2016 09:21
[2016-12-13] MEDS: Docusate 100mg cap ORAL SCH ×2 (09:45→13:00)
[2016-12-13] MEDS: Lactulose 20gm/30ml UDC ORAL SCH ×2 (09:46→13:00)
[2016-12-13 12:00] VITALS: BP 145/62
[2016-12-13] MEDS ORDERED: LACTULOSE20 GM/301 ORAL (12:00)
[2016-12-13] MEDS ORDERED: PROTONIX40 MG ORAL (12:00)
--- NOTE | 2016-12-13 12:18 | Discharge Instructions ---
Discharge Instructions Discharge Instructions Follow up with: Primary care doctor in 1 week. Services at Discharge: home health services Diet: 2 GM sodium (low sodium), renal diabetic Resume Normal Activity?: Yes Activity: resume normal activities For Congestive Heart Failure Reminder Report to your physician any weight gain of 5 pounds or more in one week. Jose Dennison M.D. Dec 13, 2016 12:18
[2016-12-13 16:20] VITALS: BP 148/65
--- NOTE | 2016-12-13 19:19 | Discharge Summary ---
Discharge Summary Hospital Course Date of Admission Dec 10, 2016 at 19:20 Date of Discharge Dec 13, 2016 at 17:05 Admitting Diagnosis hepatic encephaolpathy Reason for Hospitalization: acute hepatic encephalopathy HPI 76y/o female with pmh of hep C cirrhosis c/b hepatic encephalopathy, HTN, DM2, CVA and now non-ambulatory (per pt), CKD, aanemia of chronic disease who pressents with weakness and abnormal labs results. Per pt her PCP called her and told her to go to the ER for transfusion given low hgb--she does not know the number. She also c/o generalized weakness, some confusion. She is a poor historian. She denies f/c, n/v, d/c, chest pain, SOB, abd pain, dysuria. Denies melena, BRBPR. Pt states she has been non-ambulatory after multiple strokes. She gets around in a wheelchair. In ED, hgb 9, K 5.8. Pt given treatment for hyperkalemia including Kayexalate. Ammonia level elevated to 160s. Consultations Gastroenterology, Nephrology Hospital Course Pt was admitted and seen by renal and GI. Home CARLOS-I and lasix held given RACIEL. Pt's Cr and K improved. Her lactulose dose was increased w/ improvement in number of BMs and mental status. Pt underwent EGD on 12/12/16 which showed gastritis. Pt was seen by PT/OT. She declined SNF/rehab. She was discharged home w/ family and home health. Discharge Medications New Medications: Lactulose (Lactulose*) 20 Gm/30 Ml Solution 20 GM ORAL THREE TIMES A DAY, #120 ML Titrate to 2-3 soft BMs Continued Medications: Acetaminophen* (Tylenol Extra Strength*) 500 Mg Tablet 500 MG ORAL Q8H PRN for For Pain Amlodipine Besylate* (Amlodipine Besylate*) 10 Mg Tablet 10 MG ORAL DAILY, TAB Folic Acid* (Folic Acid*) 1 Mg Tablet 1 MG ORAL DAILY, TAB Lovastatin (Lovastatin) 20 Mg Tablet 20 MG ORAL BEDTIME, TAB 0 Refills Pioglitazone Hcl* (Actos*) 30 Mg Tablet 30 MG ORAL DAILY, TAB Rifaximin* (Xifaxan*) 550 Mg Tablet 550 MG ORAL TWICE A DAY for 30 Days, MG 0 Refills Discontinued Medications: Benazepril Hcl* (Benazepril Hcl*) 20 Mg Tablet 20 MG ORAL DAILY, TAB Furosemide* (Lasix*) 20 Mg Tablet 20 MG ORAL TWICE A DAY, TAB Lactulose (Lactulose) 10 Gm/15 Ml Solution 10 GM PO Potassium Chloride (Klor-Con 8) 8 Meq Tablet.er 8 MEQ ORAL DAILY Discharge Condition Upon Discharge: stable Discharge Disposition Patient was discharged to Home with Home Health(06) Discharge Diagnoses: (1) Acute on chronic hepatic encephalopathy (2) Cirrhosis (3) RACIEL on CKD (4) DM2 (diabetes mellitus, type 2) (5) HTN (hypertension) (6) Anemia of chronic disease (7) H/O: CVA (cerebrovascular accident) (8) Decompensated HCV cirrhosis (9) Gastritis (10) Hyperkalemia Discharge Instructions Discharge Instructions Follow up with: Primary care doctor in 1 week. Services Upon Discharge: home health services Activity: resume normal activities Jose Dennison M.D. Dec 13, 2016 19:19
--- NOTE | 2016-12-14 16:51 | Diagnostic Imaging Report ---
APPROVED REPORT CPT Code: 74947 Present Symptoms Lower Extremity Edema: Bilateral Shortness of breath Comments: Hx HTN. Prior venous duplex 02/13/2015. BILATERAL: Imaging reveals a patent deep venous system bilaterally. There is no evidence of thrombus within the femoral, popliteal or tibial segments. The greater saphenous veins are also within normal limits. Doppler indicates normal spontaneous flow within these segments. The calf veins were not well visualized bilaterally.
--- NOTE | 2016-12-28 16:12 | Cardiology Report ---
APPROVED REPORT EKG Measurement Heart [id number] Normal sinus rhythm Low voltage QRS Abnormal ECG
== END 2016-12-13 17:05 | disposition home health service (06) | DRG 442 ==
LOC: EMR 17:20 → 2E 19:20 → EDBEDREQSVC 19:30 → EDBEDREQ 19:30 → 2E 23:13
PROC: 0DB68ZX Excision of Stomach, Via Natural or Artificial Opening Endoscopic, Diagnostic (ICD-10-PCS; principal; 2016-12-12 10:11)
DX: K72.00 Acute and subacute hepatic failure without coma (principal); N17.9 Acute kidney failure, unspecified; L89.152 Pressure ulcer of sacral region, stage 2; D69.6 Thrombocytopenia, unspecified; E11.22 Type 2 diabetes mellitus with diabetic chronic kidney disease; E87.5 Hyperkalemia; N39.0 Urinary tract infection, site not specified; K74.60 Unspecified cirrhosis of liver; K29.70 Gastritis, unspecified, without bleeding; B19.20 Unspecified viral hepatitis C without hepatic coma; Z86.73 Personal history of transient ischemic attack (TIA), and cerebral infarction without residual deficits; D63.8 Anemia in other chronic diseases classified elsewhere; I12.9 Hypertensive chronic kidney disease with stage 1 through stage 4 chronic kidney disease, or unspecified chronic kidney disease; N18.9 Chronic kidney disease, unspecified; I25.10 Atherosclerotic heart disease of native coronary artery without angina pectoris; K44.9 Diaphragmatic hernia without obstruction or gangrene
CPT/HCPCS: 36415; 71010; 74000; 76700; 80048; 80053; 80076; 80300; 81003; 82105; 82140; 82270; 82550; 82607; 82728; 82746; 82962; 82977; 83036; 83540; 83550; 83605; 83690; 83735; 83880; 84100; 84300; 84439; 84443; 84484; 84550; 85007; 85025; 85610; 85730; 86140; 86705; 86709; 86803; 86850; 86900; 86901; 87086; 87181; 87340; 93005; 93970; 94003; 94150; 99285; J1815; J2250; J3490